=== PATIENT | male | born 1995 | race Caucasian/White ===

== ENCOUNTER 2016-11-20 11:35 | Emergency (ER) | payer BC ==
[~2016-11-20] VITALS: Ht 182.9 cm; Wt 159.1 kg
[2016-11-20 11:37] VITALS: BP 141/83; PULSE 112; TEMP 102.1
[2016-11-20 12:18] LABS: INFLUENZA B NEGATIVE
[2016-11-20] MEDS ORDERED: LEVAQUIN 5500 MG/TA1 PO (13:01)
[2016-11-20] MEDS ORDERED: PROAIR HFA0.09 MG/AC IH (13:01)
[2016-11-21] MEDS ORDERED: TORADOL 10MG TA10 MG PO (23:12)
== END 2016-11-20 13:10 | disposition home or self-care (01) ==
LOC: COL.ER 11:35
PROVIDERS: Nurse Practitioner
DX: J18.9 Pneumonia, unspecified organism (principal)
CPT/HCPCS: J1885; J2270

== ENCOUNTER 2016-11-21 23:04 | Emergency (ER) | payer BC ==
[~2016-11-21] VITALS: Ht 182.9 cm; Wt 159.1 kg
[~2016-11-21 23:04] MED LIST: LEVAQUIN 5500 MG/TA1 PO; PROAIR HFA0.09 MG/AC IH
[2016-11-21] MEDS ORDERED: TORADOL 10MG TA10 MG PO (23:12)
[2016-11-22] MEDS ORDERED: TUSS PO (00:02)
[2016-11-22] MEDS ORDERED: MUCINEX D1 TER PO (00:18)
[2016-11-22 01:25] VITALS: BP 142/60; PULSE 75; TEMP 98.6
== END 2016-11-22 01:34 | disposition home or self-care (01) ==
LOC: COL.ER 23:04
DX: J18.9 Pneumonia, unspecified organism (principal); G44.209 Tension-type headache, unspecified, not intractable
CPT/HCPCS: J1170; J1200; J2550; J7030

== ENCOUNTER → 2016-12-19 | Outpatient (REF) ==
[~2016-12-19] MED LIST changes: +MUCINEX D1 TER PO; +TORADOL 10MG TA10 MG PO; +TUSS PO
== END ==
LOC: WSOH 13:06 → WSPT 13:45
DX: Z02.4 Encounter for examination for driving license (principal)

== ENCOUNTER 2016-12-27 16:33 | Emergency (ER) | payer SELFPAY ==
[~2016-12-27] VITALS: Ht 188 cm; Wt 136.4 kg
[2016-12-27 16:36] VITALS: BP 136/82; PULSE 86; TEMP 99.8
== END 2016-12-27 17:48 | disposition home or self-care (01) ==
LOC: COL.ER 16:33
DX: S46.811A Strain of other muscles, fascia and tendons at shoulder and upper arm level, right arm, initial encounter (principal); S63.502A Unspecified sprain of left wrist, initial encounter; W17.89XA Other fall from one level to another, initial encounter

== ENCOUNTER 2017-01-30 14:27 | Outpatient (RCR) | payer OTHER | END 2017-03-10 13:10 | disposition home or self-care (01) | LOC: WSOH 14:27 | DX: M25.511 Pain in right shoulder (principal); W17.89XD Other fall from one level to another, subsequent encounter; Y99.0 Civilian activity done for income or pay | CPT/HCPCS: G0283-GP ==